=== PATIENT | female | born 1980 | race Caucasian/White ===

== ENCOUNTER 2017-08-22 13:51 | Emergency (ER) | payer OTHER ==
[2017-08-22 14:00] VITALS: BP 97/30
--- NOTE | 2017-08-22 14:56 | UC ---
Skin Complaint HPI - HPI Summary HPI Summary: Patient is a 36-year-old female presenting to the with a chief complaint of small tick to the left elbow. She first noticed the tick 1 hour prior to arrival. She has been outside today, but denies being outside yesterday. She states she has never had a tick or hasn't had Lyme disease. Denies any fevers, sweats, chills, arthralgias, headaches, blurry vision or double vision. Denies any other symptoms at this time. - History of Current Complaint Chief Complaint: UCSkin Time Seen by Provider: 08/22/17 14:09 Stated Complaint: TICK BITE Hx Obtained From: Patient Hx Last Menstrual Period: 05/09/14 ?: No Onset/Duration: Sudden Onset Skin Exposure Onset/Duration: Hours Ago Timing: Constant Onset Severity: Mild Pain Intensity: 0 Pain Scale Used: 0-10 Numeric Aggravating Factor(s): Nothing Alleviating Factor(s): Nothing Associated Signs & Symptoms: Positive: Negative - Allergy/Home Medications Allergies/Adverse Reactions: Allergies Allergy/AdvReac Type Severity Reaction Status Date / Time No Known Allergies Allergy Verified 05/22/14 16:36 Review of Systems Constitutional: Negative Skin: Other - tick bite Eyes: Negative ENT: Negative Respiratory: Negative Genitourinary: Negative Musculoskeletal: Negative Neurological: Negative Is Patient Immunocompromised?: No All Other Systems Reviewed And Are Negative: Yes PMH/Surg Hx/FS Hx/Imm Hx Previously Healthy: Yes - Surgical History Surgical History: None - Family History Known Family History: Positive: Unknown - Social History Occupation: Employed Full-time Lives: With Family Alcohol Use: None Substance Use Type: None Smoking Status (MU): Never Smoked Tobacco Physical Exam Triage Information Reviewed: Yes Appearance: Well-Appearing, Well-Nourished Vital Signs: Initial Vital Signs Temp 98 F 08/22/17 13:57 Pulse 67 08/22/17 13:57 Resp 15 08/22/17 13:57 BP 97/30 08/22/17 13:57 Pulse Ox 100 08/22/17 13:57 Vital Signs Reviewed: Yes Eye Exam: Normal Eyes: Positive: Conjunctiva Clear Neck exam: Normal Neck: Positive: Supple, No Lymphadenopathy Respiratory Exam: Normal Respiratory: Positive: Chest non-tender, Lungs clear Cardiovascular Exam: Normal Cardiovascular: Positive: RRR Musculoskeletal Exam: Normal Musculoskeletal: Positive: Strength Intact Neurological Exam: Normal Neurological: Positive: Alert Psychological: Positive: Normal Response To Family Skin Exam: Normal Skin: Positive: Other - tick bite to the l elbow Course/Dx - Course Course Of Treatment: Pontis scop applied in circular motions to the area. Small 18-gauge needle used to dislodge the tick head. I have given information on prophylactic treatment, tick bites, Lyme disease, and full course of doxycycline treatment. I've advised not to obtain the prophylactic treatment at this time, as there is no EM rash, no symptoms, tick likely attached for less than 24 hours. She is agreeable to this and she will return for any worsening or changing symptoms including EM rash or fevers. - Diagnoses Provider Diagnoses: Tick bite Discharge - Sign-Out/Discharge Documenting (check all that apply): Discharge/Admit/Transfer - Discharge Plan Condition: Stable Disposition: HOME Patient Education Materials: Tick Bite (ED) Referrals: No Primary Care Phys,NOPCP [Primary Care Provider] - Additional Instructions: Tick Bite: Approach to prophylaxis : According to the Infectious Diseases Society of [place] (IDSA) guidelines that recommend antibiotic prophylaxis only in patients who meet all of the following criteria: 1. Attached tick identified as an adult or nymphal I. scapularis tick (deer tick). 2. Tick is estimated to have been attached for 48 hours (by degree of engorgement or time of exposure). 3. Prophylaxis is begun within 72 hours of tick removal. Shouldnt I see a doctor right away if I suffer a tick bite? You do not need to see her doctor for every tick bite. Less than half of the local deer tick population case Lyme disease and ticks or inefficient at transmitting it, which makes her chances of being infected pretty well. If the bite site becomes red, painful, or swollen see her doctor to determine if it has become infected with other bacteria. Isnt routine t he thought it was a lot worse than what waso take preventative antibiotic if Im bitten? Is not recommended that he will take prophylactic antibiotics for tick bite. Taking too many unnecessary antibiotics is not good for you. Instead, I recommend that he watch for development of symptoms of Lyme disease in and seek treatment if he develop. If tick is attached over 48 hours and prophylaxis is begun within 72 hours, prophylaxis will be initiated. Should I get a blood test? Plan early in the course of Lyme infection about is not made enough antibodies for the blood test be positive. Getting tested when you have a fever and a Lyme rash is not helpful in could give you and your doctor a false sense that you dont have Lyme. If you develop a Lyme rash, skip the test and get treated with antibiotics. The test is helpful if someone has meningitis or arthritis from line. Can I be cure if I get Lyme disease? One of the prevailing myths right now is that Lyme disease cant be eradicated if it isnt treated right away. In fact, Lyme disease is completely curable at any stage with antibiotics. Local rate of infection of ticks with B. burgdorferi is 20 percent if attached for over 48 hours (these rates of infection have been shown to occur in parts of [place], parts of the [facility], and parts of [place] and [place]). Is I serious kidney infection If you experience a tick and time of attachment is believed to be less than what was hours, you may remove the tick with head intact and no need for prophylaxis. If over 48 hours, please come into UC. Prophylactic doxycycline is not recommended for ticks attached less than 48 hours. - Billing Disposition and Condition Condition: STABLE Disposition: HOME
== END 2017-08-22 14:30 | disposition home or self-care (01) ==
LOC: UCEAST 13:51
DX: S50.362A Insect bite (nonvenomous) of left elbow, initial encounter (principal); W57.XXXA Bitten or stung by nonvenomous insect and other nonvenomous arthropods, initial encounter; Y93.9 Activity, unspecified; Y92.89 Other specified places as the place of occurrence of the external cause
CPT/HCPCS: 99211; G0463

== ENCOUNTER 2018-10-22 12:23 | Emergency (ER) | payer OTHER ==
[2018-10-22] MEDS ORDERED: Tetan/Diph/Pertus SYR(Tdap)* 0.5 ML SYR(BOOSTRIX) use SYR IM ONE (14:06)
--- NOTE | 2018-10-22 14:07 | UC ---
Laceration HPI - HPI Summary HPI Summary: 37 y/o female presents to the urgent care c/o sliced off the tip of her RT ring finger w/ a mandolin around 2 hrs ago. Pt reports she was peeling cucumbers when it happened. Pain at touch is 3/10 and still bleeding a little bit. Pt states she is not UTD w/ Tetanus vaccine. Pt can move finger w/o any difficulty. Pt denies numbness or tingling sensation over the RT hand, fever, dizziness, THOMPSON, weakness, SOB, chest pain, abdominal pain, N/V/D. Pt states her BP is usually very low. - History Of Current Complaint Chief Complaint: UCLaceration Stated Complaint: FINGER LAC Time Seen by Provider: 10/22/18 14:02 Hx Obtained From: Patient Hx Last Menstrual Period: 10/22/18 Laceration Location: Finger - RT ring finger w/ avulsed laceration of the tip of RT ring finger Mechanism Of Injury: Sharp Trauma Onset/Duration: Sudden Onset, Lasting Hours - 2 hrs Pain Intensity: 3 Pain Scale Used: 0-10 Numeric Aggravating Factors: Other: - touch Related History: Dominant Hand Right - Allergies/Home Medications Allergies/Adverse Reactions: Allergies Allergy/AdvReac Type Severity Reaction Status Date / Time No Known Allergies Allergy Verified 10/22/18 12:52 PMH/Surg Hx/FS Hx/Imm Hx Previously Healthy: Yes - Pt denies PMHX - Surgical History Surgical History: None - Family History Known Family History: Positive: Cardiac Disease, Hypertension, Diabetes - Social History Occupation: Employed Full-time Lives: With Family Alcohol Use: None Substance Use Type: None Smoking Status (MU): Never Smoked Tobacco - Immunization History Hx Tetanus, Diphtheria Vaccination: No Review of Systems All Other Systems Reviewed And Are Negative: Yes Constitutional: Positive: Negative Skin: Positive: Other - RT ring finger w/ avulsed laceration of the tip of RT ring finger Eyes: Positive: Negative ENT: Positive: Negative Respiratory: Positive: Negative Cardiovascular: Positive: Negative Gastrointestinal: Positive: Negative Genitourinary: Positive: Negative Motor: Positive: Negative Neurovascular: Positive: Negative Musculoskeletal: Positive: Negative Neurological: Positive: Negative Psychological: Positive: Negative Is Patient Immunocompromised?: No Physical Exam - Summary Physical Exam Summary: Vital Signs Reviewed: Yes General: well developed, well nourished female sitting in the examining table w/ o any apparent distress Eye Exam: Normal Eyes: Positive: Conjunctiva Clear - PERRLA, EOMI, fundi grossly normal ENT: Positive: Normal ENT inspection, Hearing grossly normal, Pharynx normal, TMs normal Neck: Positive: Supple, Nontender, No Lymphadenopathy Respiratory: Positive: Chest non-tender, Lungs clear, Normal breath sounds, No respiratory distress Cardiovascular: Positive: RRR, No Murmur, Pulses Normal, Brisk Capillary Refill Abdomen Description: Positive: Nontender, No Organomegaly, Soft. Negative: CVA Tenderness (R), CVA Tenderness (L) Bowel Sounds: Positive: Present Musculoskeletal: Positive: Strength Intact, ROM Intact, No Edema Neurological: Positive: Alert, Muscle Tone Normal Psychological Exam: Normal Skin: Positive: tip of the RT ring finger w/ superficial laceration and skin avulsion about 1.2cm in size, still bleeding, no foreign body observed. mild tenderness to palpation, FROM of LF ring finger, sensation intact, capillary refill brisk, and pulses WNL. Triage Information Reviewed: Yes Vital Signs: Initial Vital Signs Temp 99.2 F 10/22/18 12:48 Pulse 74 10/22/18 12:48 Resp 18 10/22/18 12:48 BP 92/28 10/22/18 12:48 Pulse Ox 100 10/22/18 12:48 Laceration Repair - Laceration Repair 1 Description: Irregular - superficial irregular skin avulsion laceration of the RT ring finger tip Laceration Size After Repair: Length (cm) - 1.2cm Modified For Repair: No Cleansing Completed Via Routine Prep: Yes Irrigation With Pressure Irrigation Device: Yes Closure Material: Skin Adhesive - GEL foam Suture Of: Skin Laceration Course/Dx - Course/Dx Course Of Treatment: 37 y/o female presents to the urgent care c/o sliced off the tip of her RT ring finger w/ a mandolin around 2 hrs ago. Pt reports she was peeling cucumbers when it happened. Pain at touch is 3/10 and still bleeding a little bit. Pt states she is not UTD w/ Tetanus vaccine. Pt can move finger w/o any difficulty. Pt denies numbness or tingling sensation over the RT hand, fever, THOMPSON , dizziness, weakness, SOB, chest pain, abdominal pain, N/V/D. Pt states her BP is usually very low. Hx obtained. Pt w/ tip of the RT ring finger w/ superficial laceration and skin avulsion about 1.2cm in size, still bleeding, no foreign body observed. mild tenderness to palpation, FROM of LF ring finger, sensation intact, capillary refill brisk, and pulses WNL on examination. LACERATION PROCEDURE NOTE: Copious irrigation was done with saline and the wound cleaned and explored. There was no FB or deep structure injury noted. Wound cleaned saline water and then w/ Iodine swabs. The skin avulsion was covered w/ Gel foam and then covered w/ sterile gauze. The Pt tolerated the procedure well without adverse effects. Neurovascular intact and FROM of finger. Tdap ordered and applied by nurse. Pt Rx Bacitracin ointment and advised to take Ibuprofen PO to alleviate symptoms. Pt advised if any signs of infection develop to immediately return to the urgent care of PCP for further management and treatment. Pt understood and agreed and left the clinic ambulating A&Ox3. - Differential Dx - Laceration/Wound Differental Diagnoses: Abrasion, Cellulitis, Dehiscence, Laceration, Puncture Wound, Tendon Laceration - Diagnosis Provider Diagnosis: Laceration of right ring finger Discharge - Sign-Out/Discharge Documenting (check all that apply): Patient Departure - D/C home All imaging exams completed and their final reports reviewed: No Studies - Discharge Plan Condition: Stable Disposition: HOME Prescriptions: Bacitracin OINTMENT* 1 applic TOPICAL BID #1 tube Patient Education Materials: Laceration (ED) Referrals: [facility] REFERRAL [Outside] - 3 Days Additional Instructions: 1-Please keep gel foam in place. It will come off by itself and after that apply Bacitracin topical antibiotic over the wound as directed . Keep wound clean and dry 2-Take Ibuprofen or Tylenol PO q6-8hrs prn for pain or swelling. 3- If you develop fever or redness around your finger please return to the Urgent care. or your PCP fr further management - Billing Disposition and Condition Condition: STABLE Disposition: Home
[2018-10-22 14:11] VITALS: BP 98/41
[2018-10-22] MEDS ORDERED: Gelfoam 12-7 ADSORBABL SPONGE* 1 EA SPONGE TOPICAL ONE (14:27)
== END 2018-10-22 15:05 | disposition home or self-care (01) ==
LOC: UCEAST 12:23
DX: S61.214A Laceration without foreign body of right ring finger without damage to nail, initial encounter (principal); W27.8XXA Contact with other nonpowered hand tool, initial encounter; Y92.9 Unspecified place or not applicable
CPT/HCPCS: 90471; 90715; 99212; A9270-GY; G0463

== ENCOUNTER 2018-11-03 21:12 | Emergency (ER) | payer OTHER ==
[2018-11-03 22:24] LABS: Urine Appearance Clear; Urine Bilirubin Negative (Negative); Urine Blood Negative (Negative); Urine Color Colorless; Urine Glucose Negative (Negative); Urine Ketones Negative (Negative); Urine Nitrite Negative (Negative); Urine Protein Negative (Negative); Urine Specific Gravity 1.002 (1.010-1.030); Urine Urobilinogen Negative (Negative)
[2018-11-03 22:42] LABS: ABS Basophils 0.1 10^3/ul (0-0.2); ABS Eosinophils 0.1 10^3/ul (0-0.6); ABS Lymphocytes 1.5 10^3/ul (1.0-4.8); ABS Monocytes 0.5 10^3/ul (0-0.8); Eosinophil % 1.7 %; Hematocrit 22 % (35-47); Hemoglobin 6.5 g/dL (12.0-16.0); Lymphocyte % 20.6 %; Mean Corpuscular HGB Conc 29 g/dL (31-36); Mean Corpuscular Hemoglobin 16 pg (27-31); Mean Corpuscular Volume 54 fL (80-97); Mean Platelet Volume 8.5 fL (7.4-10.4); Nucleated Red Blood Cells % 0.1; Platelet Count 333 10^3/uL (150-450); Red Blood Count 4.15 10^6 /uL (3.70-4.87); Red Cell Distribution Width 19 % (10-15); White Blood Count 7.2 10^3/uL (3.5-10.8)
[2018-11-03 22:50] LABS: ALT 10 U/L (7-52); AST 12 U/L (13-39); Albumin 4.1 g/dL (3.2-5.2); Albumin/Globulin Ratio 1.8 (1-3); Alkaline Phosphatase 48 U/L (34-104); Amylase 24 U/L (29-103); Anion Gap 7 mmol/L (2-11); BUN/Creatinine Ratio 13.2 (8-20); Blood Urea Nitrogen 9 mg/dL (6-24); C Reactive Protein < 1.00 mg/L (<8.01); CO2 Carbon Dioxide 26 mmol/L (22-32); Calcium 8.7 mg/dL (8.6-10.3); Chloride 105 mmol/L (101-111); EGFR Non-African American 95.8 (>60); Globulin 2.3 g/dL (2-4); Glucose 107 mg/dL (70-100); Potassium 3.7 mmol/L (3.5-5.0); Sodium 138 mmol/L (135-145); Total Protein 6.4 g/dL (6.4-8.9)
[2018-11-03 22:57] LABS: HCG Pregnancy < 0.60 mIU/mL
[2018-11-03] MEDS ORDERED: NS 0.9% 1000 ML** 1,000 ML IV ONE (23:45)
[2018-11-03] MEDS ORDERED: Morphine 4 MG/ML VIAL (1 ml) 4 MG/ML VIAL IV ONE (23:45)
[2018-11-03] MEDS ORDERED: Ondansetron INJ* 2 MG/ML VIAL IV ONE (23:45)
[2018-11-04] MEDS ORDERED: Iohexol 300* (CONTRAST) 10 ML SDV IV ONE (00:39)
--- NOTE | 2018-11-04 01:47 | ED ---
Abdominal Pain/Female - HPI Summary HPI Summary: Patient complains of right flank pain radiating to right hip, nausea vomiting 4 days. Patient states pain increased significantly today. Denies fever, cough , sore throat, CP, SOB, diarrhea, change in urine, change in BM, vaginal symptoms. Denies prior history of kidney stones or ovarian cysts. Patient states she has very heavy periods, history of low BP, fibroids. Abdominal surgical history is none. - History of Current Complaint Chief Complaint: EDAbdPain Stated Complaint: ACUTE PAIN IN RIGHT SIDE OF ABD PER PT Time Seen by Provider: 11/03/18 23:32 Hx Obtained From: Patient Hx Last Menstrual Period: 10/22/18 Onset/Duration: Gradual Onset, Lasting Days Timing: Intermittent Episode Lasting Severity Initially: Mild Severity Currently: Severe Pain Intensity: 10 Pain Scale Used: 0-10 Numeric Location: Discrete At: RLQ, Flank Radiates: No Character: Sharp, Cramping Aggravating Factor(s): Nothing Associated Signs and Symptoms: Positive: Nausea, Vomiting Allergies/Adverse Reactions: Allergies Allergy/AdvReac Type Severity Reaction Status Date / Time No Known Allergies Allergy Verified 11/03/18 21:24 Home Medications: Home Medications NK [No Home Medications Reported] 11/03/18 [History Confirmed 11/03/18] PMH/Surg Hx/FS Hx/Imm Hx Endocrine/Hematology History: Denies: Hx Diabetes Cardiovascular History: Denies: Hx Hypertension History: Denies: Hx Renal Disease Sensory History: Denies: Hx Eye Prosthesis Opthamlomology History: Denies: Hx Eye Injury EENT History: Denies: Hx Deafness Neurological History: Denies: Hx Dementia Psychiatric History: Denies: Hx Autism - Immunization History Immunizations Up to Date: Yes Infectious Disease History: No Infectious Disease History: Denies: Traveled Outside the [place] in Last 30 Days - Family History Known Family History: Positive: Unknown, Cardiac Disease, Hypertension, Diabetes - Social History Alcohol Use: None Substance Use Type: Reports: None Smoking Status (MU): Never Smoked Tobacco Review of Systems Constitutional: Negative Eyes: Negative ENT: Negative Cardiovascular: Negative Respiratory: Negative Positive: Abdominal Pain, Vomiting, Nausea Positive: flank pain Musculoskeletal: Negative Skin: Negative Neurological: Negative Psychological: Normal All Other Systems Reviewed And Are Negative: Yes Physical Exam - Summary Physical Exam Summary: No CVA tenderness bilaterally. Pain with palpation of right lower quadrant and suprapubically. No pain with palpation of right hip. No ecchymosis, erythema, deformity, swelling noted to right hip. Full range of motion right hip. Triage Information Reviewed: Yes Vital Signs On Initial Exam: Initial Vitals Temp Pulse Resp BP Pulse Ox 99.7 F 69 18 93/49 100 11/03/18 21:19 11/03/18 21:19 11/03/18 21:19 11/03/18 21:19 11/03/18 21:19 Vital Signs Reviewed: Yes Appearance: Positive: Well-Appearing Skin: Positive: Warm Head/Face: Positive: Normal Head/Face Inspection Eyes: Positive: Normal Neck: Positive: Supple Respiratory/Lung Sounds: Positive: Clear to Auscultation Cardiovascular: Positive: Normal Abdomen Description: Positive: Other: Musculoskeletal: Positive: Normal Neurological: Positive: Normal Psychiatric: Positive: Normal AVPU Assessment: Alert - [place] Coma Scale Best Eye Response: 4 - Spontaneous Best Motor Response: 6 - Obeys Commands Best Verbal Response: 5 - Oriented Coma Scale Total: 15 Diagnostics - Vital Signs Vital Signs Temp Pulse Resp BP Pulse Ox 11/04/18 00:17 16 11/03/18 22:40 99.3 F 62 22 113/64 99 11/03/18 21:19 99.7 F 69 18 93/49 100 - Laboratory Lab Results: Lab Results 11/03/18 11/03/18 11/03/18 Range/Units 22:10 22:26 22:26 WBC 7.2 (3.5-10.8) 10^3/uL RBC 4.15 (3.70-4.87) 10^6 /uL Hgb 6.5 L (12.0-16.0) g/dL Hct 22 L (35-47) % MCV 54 L (80-97) fL MCH 16 L (27-31) pg MCHC 29 L (31-36) g/dL RDW 19 H (10-15) % Plt Count 333 (150-450) 10^3/uL MPV 8.5 (7.4-10.4) fL Neut % (Auto) 69.4 % Lymph % (Auto) 20.6 % [place] % (Auto) 7.0 % Eos % (Auto) 1.7 % Baso % (Auto) 1.3 % Absolute Neuts (auto) 5.0 (1.5-7.7) 10^3/ul Absolute Lymphs (auto) 1.5 (1.0-4.8) 10^3/ul Absolute Monos (auto) 0.5 (0-0.8) 10^3/ul Absolute Eos (auto) 0.1 (0-0.6) 10^3/ul Absolute Basos (auto) 0.1 (0-0.2) 10^3/ul Absolute Nucleated RBC 0.0 10^3/ul Nucleated RBC % 0.1 Hem Pathologist Commnt Pending Sodium 138 (135-145) mmol/L Potassium 3.7 (3.5-5.0) mmol/L Chloride 105 (101-111) mmol/L Carbon Dioxide 26 (22-32) mmol/L Anion Gap 7 (2-11) mmol/L BUN 9 (6-24) mg/dL Creatinine 0.68 (0.51-0.95) mg/dL Est GFR ( Amer) 116.0 (>60) Est GFR (Non-Af Amer) 95.8 (>60) BUN/Creatinine Ratio 13.2 (8-20) Glucose 107 H (70-100) mg/dL Calcium 8.7 (8.6-10.3) mg/dL Total Bilirubin 0.30 (0.2-1.0) mg/dL AST 12 L (13-39) U/L ALT 10 (7-52) U/L Alkaline Phosphatase 48 (34-104) U/L C-Reactive Protein < 1.00 (<8.01) mg/L Total Protein 6.4 (6.4-8.9) g/dL Albumin 4.1 (3.2-5.2) g/dL Globulin 2.3 (2-4) g/dL Albumin/Globulin Ratio 1.8 (1-3) Amylase 24 L (29-103) U/L Lipase 27 (11.0-82.0) U/L Beta HCG, Quant < 0.60 mIU/mL Urine Color Colorless Urine Appearance Clear Urine pH 7.0 (5-9) Ur Specific [place] 1.002 L (1.010-1.030) Urine Protein Negative (Negative) Urine Ketones Negative (Negative) Urine Blood Negative (Negative) Urine Nitrate Negative (Negative) Urine Bilirubin Negative (Negative) Urine Urobilinogen Negative (Negative) Ur Leukocyte Esterase Negative (Negative) Urine Glucose Negative (Negative) Result Diagrams: 11/03/18 22:26 11/03/18 22:26 Lab Statement: Any lab studies that have been ordered have been reviewed, and results considered in the medical decision making process. Abdominal Pain Fem Course/Dx - Course Course Of Treatment: Patient complains of right flank pain radiating to right hip, nausea vomiting 4 days. Patient states pain increased significantly today. Denies fever, cough, sore throat, CP, SOB, diarrhea, change in urine, change in BM, vaginal symptoms. Denies prior history of kidney stones or ovarian cysts. Patient states she has very heavy periods, history of low BP, fibroids. Abdominal surgical history is none. Vital signs within normal limits. Hemoglobin 6.5. Hematocrit 22. Labs otherwise unremarkable. Urine unremarkable. Patient states she has heavy menses, but but denies history of anemia. Patient states she runs 15-20 miles a week. Patient appears to be asymptomatic with a hemoglobin of 6.5. CT of abdomen and pelvis results pending. Patient was signed out to Dr. Beltran. Patient has no primary care at this time, has been advised to follow-up in [facility] meantime with [facility] for [facility] evaluation of anemia. Patient understands and approves of that plan. 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 Mario, gastrology, [place] and return to the emergency department for any new or worsening symptoms. Please follow up with the [facility] within the next 3 days. - Billing Disposition and Condition Condition: STABLE Disposition: Home
--- NOTE | 2018-11-04 03:25 | ED ---
Progress - Progress Note Progress Note: This pr is a sign out from SD Camejo to Dr. Beltran at shift change [address] A/P. - Results/Orders Results/Orders: Her CT A/P results show the followin. The uterus is moderately enlarged in which there is irregularity of the endometrial cavity which may represent submucosal leiomyomas. 2. Fluidlike structure located posterior to the uterus on the right side. This may represent a an adnexal cyst. Consider pelvic ultrasound evaluation. 3. No CT findings of acute appendicitis. No bowel obstruction. No abnormal bowel wall thickening. ED physician has reviewed this report. Course/Dx - Course Course Of Treatment: This pr is a sign out from SD Camejo to Dr. Beltran at shift change 29911/04/[address] A/P. Her CT A/P shows the followin. The uterus is moderately enlarged in which there is irregularity of the endometrial cavity which may represent submucosal leiomyomas. 2. Fluidlike structure located posterior to the uterus on the right side. This may represent a an adnexal cyst. Consider pelvic ultrasound evaluation. 3. No CT findings of acute appendicitis. No bowel obstruction. No abnormal bowel wall thickening. Pt will be discharged with a Dx of a large fibroid and will be sent home and anemia. - Diagnoses Provider Diagnoses: Inflammatory fibroid polyp of large intestine, Anemia Discharge - Sign-Out/Discharge Documenting (check all that apply): Patient Departure - discharge, Receiving Sign-Out Receiving patient FROM: Ankur Hayden Patient Received Moderate/Deep Sedation with Procedure: No - Discharge Plan Condition: Stable Disposition: HOME Patient Education Materials: Anemia (ED) Referrals: Esme Mario MD [Medical Doctor] - As Soon As Possible [facility] [Outside] - 3 Days Additional Instructions: Please follow up with Dr. Mario, gastrology, [place] and return to the emergency department for any new or worsening symptoms. Please follow up with the [facility] within the next 3 days. - Attestation Statements Document Initiated by Scribe: Yes Documenting Scribe: Andrew Menchaca Provider For Whom Scribe is Documenting (Include Credential): Malka Beltran MD Scribe Attestation: IAndrew, scribed for Malka Beltran MD on 11/04/18 at 0406. Status of Scribe Document: Ready
[2018-11-04 04:20] VITALS: BP 104/39
== END 2018-11-04 04:20 | disposition home or self-care (01) ==
LOC: ED 21:12
DX: K51.40 Inflammatory polyps of colon without complications (principal); D64.9 Anemia, unspecified
CPT/HCPCS: 36415; 74177; 80053; 81003; 82150; 83690; 84702; 85025; 85060; 86140; 96361; 96374; 96375; 99282; J2270; J2405; Q9967

== ENCOUNTER 2019-03-12 05:47 | Observation (INO) | payer OTHER ==
[~2019-03-12 05:47] MED LIST: Buffered Lidocaine 1% SYRIN* 1 ML/SYRINGE INTRADERM ONE
[2019-03-12] MEDS ORDERED: Lactated Ringers 1000 ML Bag* 1,000 ML IV SCH ×2 (06:00→12:00)
[2019-03-12] MEDS ORDERED: Famotidine IV* 10 MG/ML 2 ML (20 mg) IV ONE (06:00)
[2019-03-12] MEDS ORDERED: Dexamethasone IV* 4 MG/ML 1 ML (4 MG) IV SLOW PU ONE (06:00)
[2019-03-12] MEDS ORDERED: Dexamethasone IV* 4 MG/ML 1 ML (4 MG) ONE (06:08)
[2019-03-12] MEDS ORDERED: ceFOXitin 2 GM IVPREMIX* 2 GM/50 ML BAG ONE (06:09)
[2019-03-12] MEDS ORDERED: Famotidine IV* 10 MG/ML 2 ML (20 mg) ONE (06:09)
[2019-03-12 07:03] LABS: ABS Basophils 0.1 10^3/ul (0-0.2); ABS Eosinophils 0.3 10^3/ul (0-0.6); ABS Lymphocytes 2.1 10^3/ul (1.0-4.8); ABS Monocytes 0.5 10^3/ul (0-0.8); ABS Neutrophils 3.1 10^3/ul (1.5-7.7); Eosinophil % 4.8 %; Hematocrit 39 % (35-47); Lymphocyte % 34.1 %; Mean Corpuscular HGB Conc 34 g/dL (31-36); Mean Corpuscular Hemoglobin 28 pg (27-31); Mean Corpuscular Volume 83 fL (80-97); Mean Platelet Volume 9.2 fL (7.4-10.4); Nucleated Red Blood Cells % 0.1; Platelet Count 168 10^3/uL (150-450); Red Blood Count 4.65 10^6 /uL (3.70-4.87); Red Cell Distribution Width 16 % (10-15)
[2019-03-12] MEDS ORDERED: Bupivacaine 0.25% SDV* 30 ML ONE (07:14)
[2019-03-12] MEDS ORDERED: EPINEPHRINE 1 MG/ML 1 ML VIAL ONE (07:15)
[2019-03-12] MEDS ORDERED: methylPREDNISolone ACETATE 80* 80 MG/ML 1 ML VIAL ONE (07:15)
[2019-03-12] MEDS ORDERED: Bupivacaine 0.5%* 50 ML MDV VIAL ONE (07:16)
[2019-03-12] MEDS ORDERED: Midazolam* 1 MG/ML 5 ML VIAL (5 MG) ONE (07:21)
[2019-03-12] MEDS ORDERED: Atracurium* 10 MG/ML 10 ML VIAL ONE (07:21)
[2019-03-12] MEDS ORDERED: fentaNYL* 50 MCG/ML 5 ML VIAL (250 MCG VIAL) ONE (07:21)
[2019-03-12] MEDS ORDERED: Ketorolac INJ* 30 MG/ML 1 ML VIAL ONE (07:40)
[2019-03-12] MEDS ORDERED: Ondansetron INJ* 2 MG/ML VIAL ONE (07:40)
[2019-03-12] MEDS ORDERED: Glycopyrrolate IV* 0.2 MG/ML 1 ML VIAL ONE (07:40)
[2019-03-12] MEDS ORDERED: Propofol* 10 MG/ML 20 ML BTL ONE (07:40)
[2019-03-12] MEDS ORDERED: fentaNYL* 50 MCG/ML 2 ML VIAL (100 MCG VIAL) ONE (09:34)
[2019-03-12] MEDS ORDERED: EPHEDrine (Pressors)* 50 MG/ML VIAL ONE (09:56)
[2019-03-12] MEDS ORDERED: oxyCODONE/Acetamin 5/325 MG* TAB PO PRN ×2 (11:26)
[2019-03-12] MEDS ORDERED: Ondansetron INJ* 2 MG/ML VIAL IV PRN (11:26)
[2019-03-12] MEDS: Ketorolac INJ* 30 MG/ML 1 ML VIAL IV SCH ×2 (13:40→19:49)
--- NOTE | 2019-03-12 22:22 | OP ---
DATE OF OPERATION: 03/12/19 - ROOM #339 DATE OF : 76 SURGEON: Nena Bustos MD JOINT SETTER: Ryan Taylor DO ANESTHESIOLOGIST: Dr. Richardson. ANESTHESIA: General endotracheal. PRE-OP DIAGNOSIS: Large symptomatic fibroid uterus and menorrhagia. POST-OP DIAGNOSIS: Large symptomatic fibroid uterus and menorrhagia. OPERATIVE PROCEDURE: Laparoscopic supracervical hysterectomy with bilateral salpingectomy. ESTIMATED BLOOD LOSS: 50 cc. URINE OUTPUT: 900 cc. IV FLUIDS: 1900 cc lactated Ringer's. MATERIALS TO LAB: Morcellated uterus and bilateral fallopian tubes. INDICATIONS: This patient was a 38-year-old 3, para 2, followed in the office and noted to have significant anemia, which was related to her heavy menstrual periods. The patient was noted to have a significantly enlarged fibroid uterus. Considering the patient was having symptomatic anemia, she desired permanent treatment for her fibroid uterus. She declined embolization. She did receive 3 months of IM Lupron to minimize bleeding and also decrease the size of the uterus preoperatively. She was extensively counseled and consent was signed. FINDINGS: Markedly enlarged uterus with many fibroids essentially filling the pelvis. Bilateral ovaries and fallopian tubes appeared normal. No other pelvic pathology was noted. COMPLICATIONS: None. DESCRIPTION OF PROCEDURE: The risks, benefits, and alternatives were described to the patient and informed consent was obtained. The patient was taken to the operating room with IV running where general anesthesia was induced and found to be adequate. The patient was prepped and draped in the normal sterile fashion in the high lithotomy position in [facility]. A time-out was performed. A Nava catheter was placed. A bivalved speculum was placed in the vagina and a uterine manipulator was placed through the cervix and into the uterine cavity. The retaining balloon was filled with water and the speculum was removed. Attention was then returned to the abdomen. The patient was placed in the low lithotomy position. Gloves were changed. 0.25% Marcaine was then injected into the umbilicus and about 4 cm below the umbilicus under the skin. A midline skin incision was then made with a scalpel starting at the lower umbilicus and extending about 4 to 5 cm. The subcutaneous tissues were dissected off of the fascia and the fascia was grasped with Vipul clamp and elevated. The fascia was then entered using a scalpel. The fascial incision was extended in the midline using Sierra scissors. The peritoneum was entered bluntly. At that time, a Murtaza GelPort retractor was placed into the peritoneal cavity. Three ports were placed in the GelPort and the abdomen was insufflated with carbon dioxide gas to a maximum pressure of 15 mmHg. The patient was placed in the Trendelenburg position. The bowel was swept out of the pelvis using a blunt grasper and the pelvis was well visualized. Considering the uterus was large and especially wide from one side of the pelvis to the other, the decision was made to place additional lateral ports. 0.25% Marcaine was injected into the right and left lower quadrants. 5 mm skin incisions were made with the scalpel and then 5 mm bladeless trocars were placed into the peritoneal cavity without difficulty and under direct visualization. A LigaSure device was then used to take down the entire left mesosalpinx and then amputate the fallopian tube without difficulty. The fallopian tube was then removed through a port and handed off as a specimen. The left utero-ovarian ligament and round ligaments were coagulated and transected using the LigaSure. The anterior and posterior broad ligaments were opened using the LigaSure. A bladder flap was then created using the LigaSure and then dissected bluntly. The left uterine vessels were then skeletonized and coagulated at several sites adjacent to the cervix. Attention was then turned to the patient's right side. The fallopian tube was amputated in a similar fashion. The utero-ovarian ligaments and broad ligaments were opened in a similar fashion to the left side. The bladder flap was connected to the opposite side. The uterine vessels were again skeletonized, coagulated, and transected. At that time, the uterus showed significant blanching due to the lack of blood supply. A SupraLoop was then placed into the abdominal cavity through one of the ports and this was placed around the uterine fundus and then tightened down at the mid to upper cervix. Care was taken using a 30-degree laparoscope to visualize anteriorly, posteriorly and on both sides to ensure that the SupraLoop was in a correct place and was well away from any surrounding bowel. At that time and the loop was used with a cutting current of 110. The uterus was then successfully amputated without difficulty. Only a small amount of bleeding was noted at the edge of the cervix. The Murtaza retractor was then removed. The specimen collection bag was then folded and placed into the peritoneal cavity and the Murtaza retractor was replaced. The uterus was then placed into the collection bag under visualization with the laparoscope. The retractor was removed again and the edges of the bag were pulled up through the incision and tightened down. Over the next approximately 60 minutes, the large uterus was morcellated manually within the bag with care being taken to avoid allowing any of the tissue to fall into the abdomen. There were many small and large fibroids noted. Once the entire uterus had been removed, the specimen bag was removed. The Gelpoint was replaced and the abdomen was reinsufflated. The surface of the cervix was cauterized at several sites using monopolar cautery with a [place]. One site on the right lateral aspect of the cervix was coagulated using the LigaSure due to a small perforating vessel. At that time, there was no visible bleeding. 4 cc of Tisseel was then sprayed over the entire surgical site with good coating of the tissue surfaces. The gas was allowed to escape and the retractor was removed. The 5 mm trocars were also removed. The midline fascia was reapproximated using 0 Vicryl in a running fashion. The skin was then closed with 4-0 Monocryl in a subcuticular stitch with 4-0 Monocryl. Both of the 5 mm trocar sites were also reapproximated using 4-0 Monocryl in a subcuticular stitch and then all 3 incisions were covered with DermaFlex skin adhesive. The patient was then returned to the supine position and allowed to awaken. The patient tolerated the procedure well. Sponge, lap, and needle counts were correct x2. [id number] #: [id number] [facility]
[2019-03-13] MEDS: Ketorolac INJ* 30 MG/ML 1 ML VIAL IV SCH (02:33)
[2019-03-13] MEDS ORDERED: Acetaminophen TAB* 325 MG PO PRN (06:39)
[2019-03-13] MEDS ORDERED: Ibuprofen TAB* 600 MG PO PRN (06:39)
[2019-03-13 06:50] LABS: ABS Lymphocytes 2.9 10^3/ul (1.0-4.8); Eosinophil % 0.2 %; Hematocrit 40 % (35-47); Hemoglobin 13.4 g/dL (12.0-16.0); Lymphocyte % 19.4 %; Mean Corpuscular HGB Conc 34 g/dL (31-36); Mean Corpuscular Hemoglobin 28 pg (27-31); Mean Corpuscular Volume 83 fL (80-97); Mean Platelet Volume 9.4 fL (7.4-10.4); Platelet Count 187 10^3/uL (150-450); Red Blood Count 4.78 10^6 /uL (3.70-4.87); Red Cell Distribution Width 16 % (10-15)
--- NOTE | 2019-03-13 07:07 | DCNOTE ---
DISCHARGE PROGRESS NOTE 38 y/o POD#1 s/p supracervical hysterectomy with bilateral salpingectomy, doing well post operative. Up and ambulating, tolerating regular diet, voiding spontanteously, passing flatus, pain well controlled. O: AVSS, afebrile Gen: nad, aaox3 CV: RRR Pulm: CTABL Abd: soft, nd, nttp, no rebound, no guarding. Incisions with sutures and dermabond, no bleeding, drainage, erythema. Ext: warm, nttp, neg homans A/P: 38 y/o POD#1 s/p SC hyst with BS, doing well post operative, stable for discharge home - Meeting all criteria for discharge home - Hct Pre-op 39, post -op this AM 40. - Prescriptions sent to pharmacy - Written instructions provided - Post operative precautions reviewed, wound care reviewed Discharge Condition is GOOD Prognosis is Excellent Stable for discharge to home with no special services needed F/U in outpatient office setting Olvin Taylor DO OBRENEA
[2019-03-13 07:14] VITALS: BP 120/58
--- NOTE | 2019-03-26 12:17 | DS ---
Discharge SUMMARY Note Patient: JM HORTON /Age: 07 1980 38 Medical Record#: [id number] Admission Date: 03/12/19 Provider: Ryan Taylor DO DISCHARGE SUMMARY NOTE 38 y/o POD#1 s/p supracervical hysterectomy with bilateral salpingectomy, doing well post operative. Up and ambulating, tolerating regular diet, voiding spontanteously, passing flatus, pain well controlled. O: AVSS, afebrile Gen: nad, aaox3 CV: RRR Pulm: CTABL Abd: soft, nd, nttp, no rebound, no guarding. Incisions with sutures and dermabond, no bleeding, drainage, erythema. Ext: warm, nttp, neg homans A/P: 38 y/o POD#1 s/p SC hyst with BS, doing well post operative, stable for discharge home - Meeting all criteria for discharge home - Hct Pre-op 39, post -op this AM 38. - Prescriptions sent to pharmacy - Written instructions provided - Post operative precautions reviewed, wound care reviewed Discharge Condition is GOOD Prognosis is Excellent Stable for discharge to home with no special services needed F/U in outpatient office setting Olvin Taylor DO OBGYN
== END 2019-03-13 08:30 | disposition home or self-care (01) ==
LOC: OR 05:47 → SSU 11:26
PROVIDERS: ADMIT Obstetrics & Gynecology; ATTEND Obstetrics & Gynecology
DX: D25.9 Leiomyoma of uterus, unspecified (principal); N92.0 Excessive and frequent menstruation with regular cycle; Z01.818 Encounter for other preprocedural examination; Z87.891 Personal history of nicotine dependence; D64.9 Anemia, unspecified; Z79.899 Other long term (current) drug therapy
CPT/HCPCS: 36415; 81025; 85025; 86850; 86900; 86901; 88307; 96374; 96376; C1776; G0378; J0694; J1040; J1100; J1885; J2250; J2405; J2704; J3010; J3490